=== PATIENT | female | born 1965 | race African-American/Black ===

== ENCOUNTER 2017-03-22 14:01 | Emergency (ER) | payer OTHER ==
[~2017-03-22] VITALS: Ht 165.1 cm; Wt 98.0 kg
[~2017-03-22 14:01] MED LIST: ACET-2863 PO; IBUP-2213 PO
[2017-03-22 14:07] VITALS: BP 115/69
--- NOTE | 2017-03-22 16:43 | NUR ---
CALLED PT TO BED. NO ANSWER. PATIENT LEFT WITHOUT BEING SEEN BY DR. LAU. NO FURTHER CARE PROVIDED FOR PATIENT.
== END 2017-03-22 16:43 | disposition left against medical advice (07) ==
LOC: MED 14:01
DX: R10.13 Epigastric pain (principal); J45.909 Unspecified asthma, uncomplicated; E11.9 Type 2 diabetes mellitus without complications; Z53.21 Procedure and treatment not carried out due to patient leaving prior to being seen by health care provider

== ENCOUNTER 2017-03-23 12:29 | Emergency (ER) | payer OTHER ==
[~2017-03-23] VITALS: Ht 165.1 cm; Wt 98.0 kg
[2017-03-23 12:46] VITALS: BP 117/72
[2017-03-23] MEDS ORDERED: SIMETHICONE 40 MG/0.6 ML PO ONE (13:35)
[2017-03-23 14:03] LABS: BASOPHILS # (AUTO) 0.2 K/uL (0.00-0.22); BASOPHILS % (AUTO) 3.9 % (0.0-2.0); EOSINOPHILS # (AUTO) 0.1 K/uL (0-0.4); EOSINOPHILS % (AUTO) 1.3 % (0.0-4.0); HEMOGLOBIN 11.6 g/dL (12.0-16.0); LYMPHOCYTES # (AUTO) 1.8 K/uL (2.5-16.5); LYMPHOCYTES % (AUTO) 34.5 % (20.5-51.1); MEAN CORPUSCULAR HEMOGLOBIN 27 pg (27-31); MEAN CORPUSCULAR HGB CONC 32 g/dL (33-37); MEAN CORPUSCULAR VOLUME 83 fL (80-94); MONOCYTES # (AUTO) 0.4 K/uL (0.8-1.0); MONOCYTES % (AUTO) 7.3 % (1.7-9.3); NEUTROPHILS # (AUTO) 2.8 K/uL (1.8-7.7); PLATELET COUNT (AUTO) 290 K/uL (140-450); RED BLOOD CELL COUNT(AUTO) 4.33 MIL/uL (4.20-5.40); WHITE BLOOD COUNT (AUTO) 5.3 K/uL (4.8-10.8)
[2017-03-23 14:05] LABS: APPEARANCE,URINE CLEAR (CLEAR); BILIRUBIN,URINE NEGATIVE (NEGATIVE); BLOOD, URINE NEGATIVE (NEGATIVE); COLOR,URINE YELLOW (YELLOW); LEUKOCYTE ESTERASE ,URINE NEGATIVE (NEGATIVE); NITRITE, URINE NEGATIVE (NEGATIVE); PH,URINE 5.5 (5.0-9.0); PROTEIN,URINE NEGATIVE (NEGATIVE); UGLUCOSE NEGATIVE (NEGATIVE); UROBILINOGEN,URINE 0.2 EU/dL (0.2 - 1)
--- NOTE | 2017-03-23 14:10 | NUR ---
PATIENT TO BED 8 AT THIS TIME.
--- NOTE | 2017-03-23 14:15 | NUR ---
PT PRESENTS TO ER W/C/O ABDOMINAL PAIN X1 MONTH. HX ASTHMA. PT STATES SHE FEELS NAUSAETED AND VOMITTED TODAY ALSO STATES AHE HAS DAIRRHEA YESTERDAY; SKIN IS PINK/WARM/DRY; AAOX4 WITH EVEN AND STEADY GAIT; LUNGS CLEAR BL; HR EVEN AND REGULAR; PT DENIES ANY FEVER, CP, SOB, OR COUGH AT THIS TIME; PATIENT STATES PAIN OF 8/10 ABDOMINLA PAIN AT THIS TIME;PATIENT POSITIONED FOR COMFORT; HOB ELEVATED; BEDRAILS UP X2; BED DOWN. ER MD WILL BE NOTIFIED.
--- NOTE | 2017-03-23 14:15 | NUR ---
APT PRESENTS TO ER W/C/O ABDOMINAL PAIN X1 MONTH. HX ASTHMA. PT STATES SHE FGEELS SKIN IS PINK/WARM/DRY; AAOX4 WITH EVEN AND STEADY GAIT; LUNGS CLEAR BL; HR EVEN AND REGULAR; PT DENIES ANY FEVER, CP, SOB, OR COUGH AT THIS TIME; PATIENT STATES PAIN OF 0/10 AT THIS TIME; VSS; PATIENT POSITIONED FOR COMFORT; HOB ELEVATED; BEDRAILS UP X2; BED DOWN. ER MD MADE AWARE OF PT STATUS.
[2017-03-23 14:34] LABS: CALCIUM 9.2 mg/dL (8.5-10.1); CARBON DIOXIDE 29.1 mmol/L (21-32); CREATININE 0.9 mg/dL (0.6-1.3); POTASSIUM 4.1 mmol/L (3.5-5.1)
[2017-03-23 14:45] LABS: ALBUMIN 3.5 g/dL (3.4-5.0); TOTAL BILIRUBIN 0.3 mg/dL (0.0-1.0); TOTAL PROTEIN, SERUM 7.6 g/dL (6.4-8.2)
[2017-03-23 15:21] VITALS: BP 118/66
== END 2017-03-23 15:21 | disposition home or self-care (01) ==
LOC: MED 12:29
DX: R10.9 Unspecified abdominal pain (principal); R11.0 Nausea; J45.909 Unspecified asthma, uncomplicated; E11.9 Type 2 diabetes mellitus without complications; Z79.899 Other long term (current) drug therapy
CPT/HCPCS: 36415; 71010; 80053; 81003; 83605; 83690; 84484; 85025; 93005; 99285

== ENCOUNTER 2017-09-15 23:00 | Emergency (ER) | payer OTHER ==
[~2017-09-15] VITALS: Ht 165.1 cm; Wt 100.8 kg
[2017-09-15 23:05] VITALS: BP 131/81
--- NOTE | 2017-09-15 23:25 | NUR ---
TO ER BED 2
--- NOTE | 2017-09-15 23:27 | NUR ---
PATIENT IS A 52 Y/O FEMALE WHO PRESENTS TO THE ED C/O BILATERAL LEG PAIN. PT STATES, "MY LEGS HAVE BEEN HURTING ME RECENTLY." PT REPORTS 7/10 ACHING LEG PAIN THAT DOES NOT RADIATE. PT DENIES CP, SOB, REPORTS DIARRHEA DENIES NAUSEA/VOMITING. NOTED BILATERAL PEDAL PULSES 2+, NO OBVIOUS DEFORMITY OR BLEEDING. PT AAOX4, RR EVEN/UNLABORED. PT REPOSITIONED FOR COMFORT, BED IN LOWEST POSITION. ER MD DR. NICKERSON NOTIFIED. WILL CONTINUE TO MONITOR.
[2017-09-16 00:18] VITALS: BP 129/85
--- NOTE | 2017-09-16 00:18 | NUR ---
Patient discharged with v/s stable. Written and verbal after care instructions given and explained. Patient verbalized understanding. Ambulatory with steady gait. All questions addressed prior to discharge. Advised to follow up with PMD.
== END 2017-09-16 00:18 | disposition home or self-care (01) ==
LOC: MED 23:00
DX: M79.662 Pain in left lower leg (principal); M79.661 Pain in right lower leg; M79.89 Other specified soft tissue disorders; Z88.0 Allergy status to penicillin; J45.909 Unspecified asthma, uncomplicated; M19.90 Unspecified osteoarthritis, unspecified site
CPT/HCPCS: 99283

== ENCOUNTER 2017-10-15 07:35 | Emergency (ER) | payer OTHER ==
[~2017-10-15] VITALS: Ht 167.6 cm; Wt 99.8 kg
[2017-10-15 07:38] VITALS: BP 100/58
--- NOTE | 2017-10-15 07:50 | NUR ---
PT AMBULATED TO [facility]
--- NOTE | 2017-10-15 07:53 | NUR ---
DR KADEEM RON PT AT BEDSIDE
[2017-10-15] MEDS ORDERED: DEXAMETHASONE 10 MG/ML VIAL IM ONE (07:55)
[2017-10-15] MEDS ORDERED: ALBUTEROL SULFATE/IPRATROPIU 3 ML SOL IH ONE (07:55)
[2017-10-15] MEDS ORDERED: cefTRIAXone 1,000 MG in LIDOCAINE 1% ***ER ONLY *** 2.1 ML IM ONE (07:55)
--- NOTE | 2017-10-15 08:00 | NUR ---
52/F BIB SELF C/O COUGH x 2 WEEKS, SORE THROAT AND UPPER BACK PAIN R/T PINCH NERVES X3DAYS. PT STS TOOK 800MG MOTRIN AND NEB TX LAST NIGHT. PT BROUGHT MDI BUDESINIDE WITH HERE TODAY. HX: ASTHMA, COPD, SCHIZOPHRENIA. LUNG SOUNDS DIMINSHED, MILD EXP WHEEZE TO LL. DENIES N/V/D; SKIN IS PINK/WARM/DRY; AAOX4 WITH EVEN AND STEADY GAIT WITH CANE; LUNGS CLEAR BL; HR EVEN AND REGULAR; PT DENIES ANY FEVER, CP, SOB, OR COUGH AT THIS TIME; PATIENT STATES PAIN OF 8/10 AT THIS TIME; PATIENT POSITIONED FOR COMFORT; HOB ELEVATED; BEDRAILS UP; BED DOWN. ER MD MADE AWARE OF PT STATUS.
--- NOTE | 2017-10-15 08:04 | NUR ---
PT AMBULATED TO BED 3
--- NOTE | 2017-10-15 08:10 | NUR ---
RT AT BEDSIDE.
[2017-10-15] MEDS ORDERED: cefTRIAXone 1,000 MG VIAL ONE (08:11)
--- NOTE | 2017-10-15 08:26 | NUR ---
X-Ray at bedside.
--- NOTE | 2017-10-15 09:30 | NUR ---
Patient discharged with v/s stable. Written and verbal after care instructions given and explained. Patient alert, oriented and verbalized understanding of instructions. Ambulatory with CANE. All questions addressed prior to discharge. ID band removed. Patient advised to follow up with PMD. Rx of ALBUTEROL MDI, PREDNISONE, AZITHROMYCIN given. Patient educated on indication of medication including possible reaction and side effects. Opportunity to ask questions provided and answered.
--- NOTE | 2017-10-15 09:30 | NUR ---
ORANGE SURVEY GIVEN TO PT.
[2017-10-15 09:33] VITALS: BP 100/58
== END 2017-10-15 09:30 | disposition home or self-care (01) ==
LOC: MED 07:35
DX: J45.901 Unspecified asthma with (acute) exacerbation (principal); J06.9 Acute upper respiratory infection, unspecified; F41.9 Anxiety disorder, unspecified; Z88.0 Allergy status to penicillin; Z79.899 Other long term (current) drug therapy
CPT/HCPCS: 71046; 94640; 96372; 99284; J0696; J1100; J2001; J7620

== ENCOUNTER 2018-11-03 14:16 | Emergency (ER) | payer OTHER ==
[~2018-11-03] VITALS: Ht 165.1 cm; Wt 99.3 kg
[~2018-11-03 14:16] MED LIST changes: -ACET-2863 PO; +HYDR-5123 PO
[2018-11-03 14:28] VITALS: BP 112/77
--- NOTE | 2018-11-03 14:32 | NUR ---
PT TO ER BED 12
--- NOTE | 2018-11-03 14:35 | NUR ---
53/F BIB SELF AMB WITH CANE C/O EPIGASTRIC PAIN THAT FEELS LIKE CRAMPS ON THE TOP OF ABDOMEN. PAIN STARTED YESTERDAY; PT TOOK NAPROSYN WITH NO RELIEF. PT STATES THAT GI DOCTOR TOLD HER SHE HAS A HERNIA IN THE EPIGASTRIC AREA. PAIN HAS BEEN INCREASING; HEAT HELPS. PAIN 05/02. HX: SLEEP APNEA, ASTHMA, PSYCH, LL SURGERY RX: ALBUTEROL, OMEPRAZOLE, KLONOPIN, SEROQUEL, ABILIFY
--- NOTE | 2018-11-03 15:15 | NUR ---
DR ADAIR AT BEDSIDE
[2018-11-03 15:53] LABS: BASOPHILS % (AUTO) 0.3 % (0.0-2.0); EOSINOPHILS # (AUTO) 0.1 K/uL (0-0.4); EOSINOPHILS % (AUTO) 1.9 % (0.0-4.0); HEMATOCRIT 35.1 % (36-48); HEMOGLOBIN 11.3 g/dL (12.0-16.0); LYMPHOCYTES # (AUTO) 1.9 K/uL (2.5-16.5); LYMPHOCYTES % (AUTO) 47.9 % (20.5-51.1); MEAN CORPUSCULAR HEMOGLOBIN 27 pg (27-31); MEAN CORPUSCULAR HGB CONC 32 g/dL (33-37); MEAN CORPUSCULAR VOLUME 82.9 fL (80-94); MONOCYTES # (AUTO) 0.4 K/uL (0.8-1.0); MONOCYTES % (AUTO) 9.9 % (1.7-9.3); NEUTROPHILS # (AUTO) 1.6 K/uL (1.8-7.7); PLATELET COUNT (AUTO) 280 K/uL (140-450); RED BLOOD CELL COUNT(AUTO) 4.24 MIL/uL (4.20-5.40); RED CELL DISTRIBUTION WIDTH 14.8 % (11.6-13.7)
--- NOTE | 2018-11-03 16:00 | NUR ---
PT RETURNED FROM CT. VSS. AA0X4.
[2018-11-03 16:01] LABS: APPEARANCE,URINE CLEAR (CLEAR); BILIRUBIN,URINE NEGATIVE (NEGATIVE); BLOOD, URINE NEGATIVE (NEGATIVE); COLOR,URINE YELLOW (YELLOW); LEUKOCYTE ESTERASE ,URINE 1+ (NEGATIVE); NITRITE, URINE NEGATIVE (NEGATIVE); UGLUCOSE NEGATIVE (NEGATIVE)
[2018-11-03 16:10] LABS: RBC,URINE 0-5 /HPF (0-5)
[2018-11-03 16:17] LABS: ANION GAP 11.7 (8-16); CARBON DIOXIDE 28.2 mmol/L (21-32); CREATININE 0.8 mg/dL (0.6-1.3); POTASSIUM 3.9 mmol/L (3.5-5.1)
[2018-11-03 16:23] LABS: ALBUMIN 3.6 g/dL (3.4-5.0); TOTAL BILIRUBIN 0.4 mg/dL (0.0-1.0)
[2018-11-03 17:13] VITALS: BP 114/60
--- NOTE | 2018-11-03 17:13 | NUR ---
Patient discharged with v/s stable. Written and verbal after care instructions given and explained. Patient alert, oriented and verbalized understanding of instructions. Ambulatory with . All questions addressed prior to discharge. ID band removed. Patient advised to follow up with PMD. Rx of BENTYL,ZOLAYNE&PEPCID given. Patient educated on indication of medication including possible reaction and side effects. Opportunity to ask questions provided and answered.
== END 2018-11-03 17:13 | disposition home or self-care (01) ==
LOC: MED 14:16
DX: R10.13 Epigastric pain (principal); R11.0 Nausea; J44.9 Chronic obstructive pulmonary disease, unspecified; Z79.891 Long term (current) use of opiate analgesic; Z79.1 Long term (current) use of non-steroidal anti-inflammatories (NSAID); Z88.0 Allergy status to penicillin; Z88.6 Allergy status to analgesic agent
CPT/HCPCS: 36415; 80053; 81001; 81025; 85025; 87086; 99284

== ENCOUNTER 2018-11-10 10:26 | Emergency (ER) | payer OTHER ==
[~2018-11-10] VITALS: Ht 165.1 cm; Wt 55.8 kg
[2018-11-10 10:28] VITALS: BP 123/77
--- NOTE | 2018-11-10 10:45 | NUR ---
PT AMB TO BED 12
--- NOTE | 2018-11-10 11:00 | NUR ---
C/O NAUSEA,GENERALIZED ABDOMINAL PAIN, COUGH, SORE THROAT & CHEST DYSCOMFOT X 1 WEEK. SEEN HERE SAME S/S X LAST WEDNESDAY; GOT [facility]ARD. MED HX: BODERLINE DM, ASTHMA SLEEP APNEA, PARTIAL HYSTERECTOMY MED : ON THE MED LIST
[2018-11-10] MEDS ORDERED: NACL 0.9% 500 ML IV SCH (11:33)
[2018-11-10 12:09] LABS: BASOPHILS % (AUTO) 0.5 % (0.0-2.0); EOSINOPHILS % (AUTO) 0.9 % (0.0-4.0); HEMATOCRIT 36.4 % (36-48); HEMOGLOBIN 11.9 g/dL (12.0-16.0); LYMPHOCYTES % (AUTO) 45.5 % (20.5-51.1); MEAN CORPUSCULAR HEMOGLOBIN 27 pg (27-31); MEAN CORPUSCULAR HGB CONC 33 g/dL (33-37); MEAN CORPUSCULAR VOLUME 82.2 fL (80-94); MONOCYTES # (AUTO) 0.3 K/uL (0.8-1.0); NEUTROPHILS % (AUTO) 46.1 % (42.2-75.2); PLATELET COUNT (AUTO) 349 K/uL (140-450); RED BLOOD CELL COUNT(AUTO) 4.42 MIL/uL (4.20-5.40); RED CELL DISTRIBUTION WIDTH 14.7 % (11.6-13.7); WHITE BLOOD COUNT (AUTO) 4.4 K/uL (4.8-10.8)
[2018-11-10 12:21] LABS: BILIRUBIN,URINE NEGATIVE (NEGATIVE); BLOOD, URINE NEGATIVE (NEGATIVE); COLOR,URINE YELLOW (YELLOW); LEUKOCYTE ESTERASE ,URINE NEGATIVE (NEGATIVE); NITRITE, URINE NEGATIVE (NEGATIVE); PH,URINE 6.5 (5.0-9.0); UGLUCOSE NEGATIVE (NEGATIVE)
[2018-11-10 12:24] LABS: ANION GAP 12.8 (8-16); CARBON DIOXIDE 29.1 mmol/L (21-32); CREATININE 0.8 mg/dL (0.6-1.3); POTASSIUM 3.9 mmol/L (3.5-5.1)
[2018-11-10 12:26] LABS: APPEARANCE,URINE CLEAR (CLEAR)
[2018-11-10 12:28] LABS: PROTHROMBIN TIME 9.9 secs (10.8-13.4)
[2018-11-10 12:30] LABS: ALBUMIN 3.6 g/dL (3.4-5.0); TOTAL BILIRUBIN 0.2 mg/dL (0.0-1.0)
[2018-11-10 14:08] VITALS: BP 116/61
== END 2018-11-10 14:08 | disposition home or self-care (01) ==
LOC: MED 10:26
DX: R10.84 Generalized abdominal pain (principal); R11.0 Nausea; R05 Cough; J02.9 Acute pharyngitis, unspecified; R07.89 Other chest pain; J44.9 Chronic obstructive pulmonary disease, unspecified; Z79.899 Other long term (current) drug therapy; Z88.5 Allergy status to narcotic agent; Z88.6 Allergy status to analgesic agent; Z90.710 Acquired absence of both cervix and uterus
CPT/HCPCS: 36415; 71045; 74176; 80053; 81003; 83605; 83880; 84484; 85025; 85610; 85730; 87040; 87086; 93005; 99284; J7030; Q0092

== ENCOUNTER 2019-03-16 07:24 | Emergency (ER) | payer OTHER ==
[~2019-03-16] VITALS: Ht 165.1 cm; Wt 98.0 kg
--- NOTE | 2019-03-16 07:31 | NUR ---
Patient ambulated to bed 3. RN evaluating patient at bedside.
[2019-03-16 07:37] VITALS: BP_SYST 11; BP_SYST 110; BP_DIAS 72
--- NOTE | 2019-03-16 07:39 | NUR ---
C/O NAUSEA, DIZZINESS & HEADACHE X 2 DAYS.MED HX:ASTHMA, SLEEP APNEA, GERD, NERVE PAIN, BORDERLINE DM. DENIES V/D; SKIN IS PINK/WARM/DRY; AAOX4,AMB WITH CANE; PATIENT STATES PAIN OF 8/10 AT THIS TIME. PATIENT POSITIONED FOR COMFORT; HOB ELEVATED; BEDRAILS UP X1; BED DOWN. ER MD MADE AWARE OF PT STATUS.
--- NOTE | 2019-03-16 07:41 | NUR ---
Dr. Stanley evaluating patient at bedside.
[2019-03-16] MEDS ORDERED: ONDANSETRON 4 MG ODT PO ONE (07:45)
[2019-03-16] MEDS ORDERED: SCOPOLAMINE 1.5 MG/72 HR PATCH TD SCH (07:45)
[2019-03-16] MEDS ORDERED: MECLIZINE 25 MG TAB PO ONE (07:45)
--- NOTE | 2019-03-16 07:55 | NUR ---
LAB AT BEDSIDE
[2019-03-16 08:10] LABS: BASOPHILS % (AUTO) 0.3 % (0.0-2.0); EOSINOPHILS % (AUTO) 1.1 % (0.0-4.0); HEMATOCRIT 34.2 % (36-48); LYMPHOCYTES # (AUTO) 1.7 K/uL (2.5-16.5); LYMPHOCYTES % (AUTO) 42.3 % (20.5-51.1); MEAN CORPUSCULAR HEMOGLOBIN 26 pg (27-31); MEAN CORPUSCULAR HGB CONC 32 g/dL (33-37); MEAN CORPUSCULAR VOLUME 80.7 fL (80-94); MONOCYTES # (AUTO) 0.4 K/uL (0.8-1.0); MONOCYTES % (AUTO) 9.4 % (1.7-9.3); NEUTROPHILS # (AUTO) 1.9 K/uL (1.8-7.7); NEUTROPHILS % (AUTO) 46.9 % (42.2-75.2); PLATELET COUNT (AUTO) 268 K/uL (140-450); RED BLOOD CELL COUNT(AUTO) 4.23 MIL/uL (4.20-5.40); RED CELL DISTRIBUTION WIDTH 15.7 % (11.6-13.7); WHITE BLOOD COUNT (AUTO) 4.1 K/uL (4.8-10.8)
--- NOTE | 2019-03-16 08:16 | NUR ---
PT TAKEN TO CT VIA W/C, ACCOMPANIED BY FIRESTOP/CONTAINMENT WORKER.
[2019-03-16 08:22] LABS: CARBON DIOXIDE 27.1 mmol/L (21-32); CREATININE 0.8 mg/dL (0.6-1.3); POTASSIUM 4.1 mmol/L (3.5-5.1)
[2019-03-16 08:28] LABS: ALBUMIN 3.5 g/dL (3.4-5.0); TOTAL BILIRUBIN 0.2 mg/dL (0.0-1.0)
--- NOTE | 2019-03-16 08:49 | NUR ---
pt returned from ct.
--- NOTE | 2019-03-16 09:27 | NUR ---
Dr. Stanley reevaluating patient at bedside.
[2019-03-16 09:42] VITALS: BP 110/81
--- NOTE | 2019-03-16 09:42 | NUR ---
Patient discharged with v/s stable. Written and verbal after care instructions given and explained. Patient alert, oriented and verbalized understanding of instructions. Ambulatory with steady gait. All questions addressed prior to discharge. ID band removed. Patient advised to follow up with PMD. Rx of MECLIZINE,ZOFRAN & SCOPOLAMINE given. Patient educated on indication of medication including possible reaction and side effects. Opportunity to ask questions provided and answered.
== END 2019-03-16 09:42 | disposition home or self-care (01) ==
LOC: MED 07:24
DX: R42 Dizziness and giddiness (principal); R11.2 Nausea with vomiting, unspecified; J44.9 Chronic obstructive pulmonary disease, unspecified; Z79.899 Other long term (current) drug therapy; Z88.0 Allergy status to penicillin; Z88.6 Allergy status to analgesic agent
CPT/HCPCS: 36415; 70450; 80053; 85025; 99284; J8597; Q0162

== ENCOUNTER 2019-04-14 10:16 | Emergency (ER) | payer OTHER ==
[~2019-04-14] VITALS: Ht 165.1 cm; Wt 97.1 kg
[2019-04-14 10:20] VITALS: BP 107/73
--- NOTE | 2019-04-14 10:26 | NUR ---
PT AMB TO BED 1 WITH WALKER
--- NOTE | 2019-04-14 10:41 | NUR ---
PT BIB SLEF WITH C/O R FOOT PAIN X 1 WEEK RADIATING UP LEG. DENIES TRUAMA/INJURY. NO OBVIOUS DEFORMITY. PAIN 10/10. PT RT FOOT HAS SLIGHT TENDERNESS TO TOUCH AT LATERAL SIDE. PINK SMALL SPOT OBSERVED, STATES TO HAVE SLIGHT PAIN WHILE TOUCHING IT. CAN MOVE THE LEG, NO SWELLNG OR REDNESS NOTED. PT STATES TO HAVE GONE TO PAIN MANAGEMENT CLIN[facility], PROVIDER INCREASED THE HER PAIN MEDS DOSE, NOT HELPING. PAIN WORSE WITH ACTIVITIES. DENIES CHILLS, FEVER, N, V. PT USES WALKER FOR THE AMBULATION. BED AT LOWER POSITION. ER MD TO SEE THE PT. PMH-SLEEP APNEA, ASTHMA, GERD, INSOMNIA
[2019-04-14 13:33] VITALS: BP 118/75
--- NOTE | 2019-04-14 13:33 | NUR ---
Patient discharged with v/s stable. Written and verbal after care instructions given and explained. Patient alert, oriented and verbalized understanding of instructions. Ambulatory with steady gait. All questions addressed prior to discharge. ID band removed. Patient advised to follow up with PMD. Opportunity to ask questions provided and answered.
== END 2019-04-14 13:33 | disposition home or self-care (01) ==
LOC: MED 10:16
DX: M25.571 Pain in right ankle and joints of right foot (principal); J44.9 Chronic obstructive pulmonary disease, unspecified; Z88.0 Allergy status to penicillin
CPT/HCPCS: 73630; 99283

== ENCOUNTER 2019-07-12 09:05 | Emergency (ER) | payer OTHER ==
[~2019-07-12] VITALS: Ht 165.1 cm; Wt 93.0 kg
[2019-07-12 09:40] VITALS: BP 104/58
[2019-07-12] MEDS: KETOROLAC 60 MG/2 ML VIAL IM ONE (12:04)
[2019-07-12 13:07] VITALS: BP 104/58
== END 2019-07-12 13:07 | disposition home or self-care (01) ==
LOC: MED 09:05
DX: M54.5 Low back pain (principal); G89.29 Other chronic pain; J44.9 Chronic obstructive pulmonary disease, unspecified; Z79.1 Long term (current) use of non-steroidal anti-inflammatories (NSAID); Z79.891 Long term (current) use of opiate analgesic; Z88.0 Allergy status to penicillin; Z88.6 Allergy status to analgesic agent
CPT/HCPCS: 81002; 96372; 99283; J1885

== ENCOUNTER 2019-07-15 08:34 | Emergency (ER) | payer OTHER ==
[~2019-07-15] VITALS: Ht 165.1 cm; Wt 98.1 kg
[2019-07-15 08:43] VITALS: BP 127/68
--- NOTE | 2019-07-15 09:05 | NUR ---
PT C/O RIGHT BACK PAIN RADIATING TO LEFT ABDOMINAL X 2 DAYS. SEEN HERE 2 DAYS AGO & WENT TO URGENT CARE LAST NIGHT SAME SX. PATIENT STATES PAIN OF 8/10 AT THIS TIME; VSS; PATIENT POSITIONED FOR COMFORT; HOB ELEVATED; BEDRAILS UP X1; BED DOWN. ER MD MADE AWARE OF PT STATUS.
[2019-07-15] MEDS ORDERED: KETOROLAC 30 MG/ML VIAL IVP ONE (09:20)
[2019-07-15] MEDS ORDERED: NACL 0.9% 1,000 ML IV ONE (09:20)
--- NOTE | 2019-07-15 09:27 | NUR ---
Chuck ambrosio in ED - 07/15/19 at 0927 by HANNAH PT [address] CT VIA WHEELCHAIR
--- NOTE | 2019-07-15 09:27 | NUR ---
PT TAKEN TO CT SCAN BY DISPENSING AND MEASURING OPTICIAN VIA WHEELCHAIR.
[2019-07-15 09:50] LABS: BASOPHILS % (AUTO) 1.1 % (0.0-2.0); EOSINOPHILS # (AUTO) 0.1 K/uL (0-0.4); EOSINOPHILS % (AUTO) 1.9 % (0.0-4.0); HEMATOCRIT 34.9 % (36-48); HEMOGLOBIN 11.3 g/dL (12.0-16.0); LYMPHOCYTES # (AUTO) 1.7 K/uL (2.5-16.5); LYMPHOCYTES % (AUTO) 48.8 % (20.5-51.1); MEAN CORPUSCULAR HEMOGLOBIN 27 pg (27-31); MEAN CORPUSCULAR HGB CONC 32 g/dL (33-37); MEAN CORPUSCULAR VOLUME 82.2 fL (80-94); MONOCYTES # (AUTO) 0.4 K/uL (0.8-1.0); MONOCYTES % (AUTO) 11.8 % (1.7-9.3); NEUTROPHILS # (AUTO) 1.3 K/uL (1.8-7.7); NEUTROPHILS % (AUTO) 36.4 % (42.2-75.2); PLATELET COUNT (AUTO) 269 K/uL (140-450); RED BLOOD CELL COUNT(AUTO) 4.25 MIL/uL (4.20-5.40); RED CELL DISTRIBUTION WIDTH 15.2 % (11.6-13.7); WHITE BLOOD COUNT (AUTO) 3.5 K/uL (4.8-10.8)
[2019-07-15 09:57] LABS: ANION GAP 14.2 (8-16); CARBON DIOXIDE 26.9 mmol/L (21-32); CREATININE 0.7 mg/dL (0.6-1.3); POTASSIUM 5.1 mmol/L (3.5-5.1)
[2019-07-15 10:03] LABS: ALBUMIN 3.3 g/dL (3.4-5.0); TOTAL BILIRUBIN 0.3 mg/dL (0.0-1.0)
--- NOTE | 2019-07-15 10:15 | NUR ---
PT HAS BEEN BACK FROM CT SCAN VIA WHEELCHAIR ASSISTED BY AFTERNOON BABYSITTER.
--- NOTE | 2019-07-15 10:56 | NUR ---
Dr. Pruitt is re-evaluating the patient at bedside.
[2019-07-15 11:13] VITALS: BP 123/61
--- NOTE | 2019-07-15 11:13 | NUR ---
Patient discharged with v/s stable. Written and verbal after care instructions given and explained. Patient alert, oriented and verbalized understanding of instructions. Ambulatory with steady gait. All questions addressed prior to discharge. ID band removed. Patient advised to follow up with PMD. Rx of Motrin and Tramadol given. Patient educated on indication of medication including possible reaction and side effects. Opportunity to ask questions provided and answered.
== END 2019-07-15 11:13 | disposition home or self-care (01) ==
LOC: MED 08:34
DX: K57.90 Diverticulosis of intestine, part unspecified, without perforation or abscess without bleeding (principal); J44.9 Chronic obstructive pulmonary disease, unspecified; Z79.899 Other long term (current) drug therapy; Z88.0 Allergy status to penicillin; Z88.6 Allergy status to analgesic agent
CPT/HCPCS: 36415; 74176; 80053; 85025; J1885; 96361; 96374; 99284; J7030

== ENCOUNTER 2019-09-16 10:36 | Emergency (ER) | payer OTHER ==
[~2019-09-16] VITALS: Ht 165.1 cm; Wt 95.3 kg
[2019-09-16 10:41] VITALS: BP 124/75
--- NOTE | 2019-09-16 10:50 | NUR ---
AMB TO BED 05
--- NOTE | 2019-09-16 10:58 | NUR ---
Dr. Kat is evaluating the patient at bedside.
[2019-09-16] MEDS ORDERED: ALBUTEROL SULFATE/IPRATROPIU 3 ML SOL IH ONE ×2 (11:00→12:07)
--- NOTE | 2019-09-16 11:05 | NUR ---
54/F TO ED WITH C/O COUGH, CONGESTION, SHORTNESS OF BREATH OVER THE LAST "FEW WEEKS" PT DOES NOT APPEAR TO BE IN DISTRESS. LUNG SOUNDS CLEAR BILATERALLY. IN BED FOR MSE.
[2019-09-16] MEDS ORDERED: predniSONE 20 MG TAB PO ONE (11:10)
--- NOTE | 2019-09-16 11:15 | NUR ---
TO XRAY VIA CT.
--- NOTE | 2019-09-16 12:15 | NUR ---
PT REPORTS RELIEF OF SYMPTOMS S/P BREATHING TREATMENT. D/C ORDERS TO FOLLOW.
[2019-09-16 12:40] VITALS: BP 124/75
== END 2019-09-16 12:40 | disposition home or self-care (01) ==
LOC: MED 10:36
DX: J20.9 Acute bronchitis, unspecified (principal); J44.9 Chronic obstructive pulmonary disease, unspecified; K21.9 Gastro-esophageal reflux disease without esophagitis; F32.9 Major depressive disorder, single episode, unspecified; Z79.899 Other long term (current) drug therapy; Z88.0 Allergy status to penicillin; Z88.5 Allergy status to narcotic agent
CPT/HCPCS: 71046; 87804; 94640; 99284; J7512; J7620

== ENCOUNTER 2020-02-06 11:06 | Emergency (ER) | payer OTHER ==
[~2020-02-06] VITALS: Ht 165.1 cm; Wt 98.0 kg
[2020-02-06 11:11] VITALS: BP 126/73
--- NOTE | 2020-02-06 11:18 | NUR ---
Patient ambulated to bed 7. RN evaluating patient at bedside.
--- NOTE | 2020-02-06 11:20 | NUR ---
C/O RIGHT FOOT PAIN RADIATING TO R CALF 10 ON AND OFF FOR 3 MONTHS BUT HAD INCREASED OVER THE LAST WEEK. PT STATES "I THINK I HAVE A BLOOD CLOT". NO REDNESS/SWELLING/WARMTH NOTED TO CALF AREA. TENDERNESS NOTED TO CALF ON PALPATION. PT BASELINE AMBULATORY STATUS IS WITH WALKER. PROVIDED PT WITH GOWN, CAREGIVER AT BEDSIDE
--- NOTE | 2020-02-06 11:21 | NUR ---
Dr. Benavidez is evaluating the patient at bedside.
--- NOTE | 2020-02-06 11:39 | NUR ---
US tech at bedside for exam.
--- NOTE | 2020-02-06 12:40 | NUR ---
Patient discharged with v/s stable. Written and verbal after care instructions given and explained. Patient alert, oriented and verbalized understanding of instructions. Ambulatory with to car. All questions addressed prior to discharge. ID band removed. Patient advised to follow up with PMD. Rx of Diclofenak gel 3% given. Patient educated on indication of medication including possible reaction and side effects. Opportunity to ask questions provided and answered.
[2020-02-06 12:47] VITALS: BP 110/70
== END 2020-02-06 12:40 | disposition home or self-care (01) ==
LOC: MED 11:06
DX: S86.811A Strain of other muscle(s) and tendon(s) at lower leg level, right leg, initial encounter (principal); J44.9 Chronic obstructive pulmonary disease, unspecified; K21.9 Gastro-esophageal reflux disease without esophagitis; F32.9 Major depressive disorder, single episode, unspecified; Z98.890 Other specified postprocedural states; Z79.899 Other long term (current) drug therapy; Z88.0 Allergy status to penicillin; Z88.6 Allergy status to analgesic agent; Z90.710 Acquired absence of both cervix and uterus; X58.XXXA Exposure to other specified factors, initial encounter; Y93.89 Activity, other specified; Y92.89 Other specified places as the place of occurrence of the external cause; Y99.8 Other external cause status
CPT/HCPCS: 93971; 99284; Q0092

== ENCOUNTER 2020-04-18 08:52 | Emergency (ER) | payer OTHER ==
[~2020-04-18] VITALS: Ht 165.1 cm; Wt 98.0 kg
[2020-04-18 09:04] VITALS: BP 144/80
--- NOTE | 2020-04-18 09:10 | NUR ---
PT AMB TO BED 7.
--- NOTE | 2020-04-18 09:24 | NUR ---
55 YO FEMALE C/O NAUSEA AND CONSTANT LUQ ABDOMINAL PAIN X 4-5 DAYS. CHRONIC COUGH FROM ASTHMA MED HX: ASTHMA, BRONCHITIS, SLEEP APNEA, IBS, ABD HERNIA
[2020-04-18] MEDS ORDERED: LIDOCAINE VISCOUS 2% 20 ML UDC ONE (09:34)
[2020-04-18] MEDS ORDERED: ALUMINUM HYD/MAG/SIMETHICONE 30 ML UDC ONE (09:34)
[2020-04-18] MEDS ORDERED: DICYCLOMINE HCL LIQUID 10 MG/5 ML UDC ONE (09:35)
[2020-04-18] MEDS ORDERED: DICYCLOMINE HCL LIQUID 20 MG, ALUMINUM HYD/MAG/SIMETHICONE 30 ML, LIDOCAINE VISCOUS 2% ... PO ONE ×3 (09:35)
[2020-04-18 10:14] VITALS: BP 138/79
--- NOTE | 2020-04-18 10:15 | NUR ---
Patient discharged with v/s stable. Written and verbal after care instructions given and explained. Patient alert, oriented and verbalized understanding of instructions. Ambulatory with steady gait. All questions addressed prior to discharge. ID band removed. Patient advised to follow up with PMD. Rx of CIPRO AND ZOFRAN given. Patient educated on indication of medication including possible reaction and side effects. Opportunity to ask questions provided and answered.
== END 2020-04-18 10:15 | disposition home or self-care (01) ==
LOC: MED 08:52
DX: R10.13 Epigastric pain (principal); R19.7 Diarrhea, unspecified; J44.9 Chronic obstructive pulmonary disease, unspecified; J45.909 Unspecified asthma, uncomplicated; K21.9 Gastro-esophageal reflux disease without esophagitis; Z88.0 Allergy status to penicillin; Z96.653 Presence of artificial knee joint, bilateral; Z79.899 Other long term (current) drug therapy
CPT/HCPCS: 81002; 99283

== ENCOUNTER 2021-02-17 11:01 | Emergency (ER) | payer OTHER ==
[~2021-02-17] VITALS: Ht 165.1 cm; Wt 98.9 kg
[~2021-02-17 11:01] MED LIST changes: +HYDR-5080 PO; -HYDR-5123 PO
[2021-02-17 11:21] VITALS: BP 118/73
--- NOTE | 2021-02-17 11:25 | NUR ---
PT TO AWAIT IN LOBBY
--- NOTE | 2021-02-17 12:26 | NUR ---
PT AMBULATED TO BED 07
--- NOTE | 2021-02-17 13:08 | NUR ---
Dr. Orourke is evaluating the patient at bedside.
[2021-02-17] MEDS ORDERED: KETOROLAC 60 MG/2 ML VIAL IM ONE (13:10)
[2021-02-17] MEDS ORDERED: CIPR500T4 PO ×2 (13:23→13:43)
[2021-02-17] MEDS ORDERED: PRED20TA5 PO ×2 (13:23→13:43)
[2021-02-17] MEDS ORDERED: IBUP-2213 PO ×2 (13:23→13:43)
[2021-02-17 14:01] VITALS: BP 118/73
--- NOTE | 2021-02-17 14:01 | NUR ---
Patient discharged with v/s stable. Written and verbal after care instructions ABOUT MEDICATIONS, PYELONEPHRITIS AND COUGH given and explained. Patient alert, oriented and verbalized understanding of instructions. Ambulatory with steady gait. All questions addressed prior to discharge. ID band removed. Patient advised to follow up with PMD. Rx of CIPROFLOXACIN HCL, IBUPROFEN, AND PREDNISONE given. Patient educated on indication of medication including possible reaction and side effects. Opportunity to ask questions provided and answered.
== END 2021-02-17 13:59 | disposition home or self-care (01) ==
LOC: MED 11:01
DX: N12 Tubulo-interstitial nephritis, not specified as acute or chronic (principal); R19.7 Diarrhea, unspecified; J44.9 Chronic obstructive pulmonary disease, unspecified; K21.9 Gastro-esophageal reflux disease without esophagitis; Z88.0 Allergy status to penicillin; Z88.8 Allergy status to other drugs, medicaments and biological substances; Z98.890 Other specified postprocedural states; Z79.899 Other long term (current) drug therapy
CPT/HCPCS: 81002; 81025; 96372; 99283; J1885

== ENCOUNTER 2021-02-26 09:15 | Emergency (ER) | payer OTHER ==
[~2021-02-26] VITALS: Ht 165.1 cm; Wt 98.9 kg
[~2021-02-26 09:15] MED LIST changes: +CIPR500T4 PO; +PRED20TA5 PO
[2021-02-26 09:21] VITALS: BP 110/61
[2021-02-26] MEDS ORDERED: DICYCLOMINE 10 MG CAP PO ONE (10:30)
[2021-02-26] MEDS ORDERED: FAMOTIDINE 20 MG TAB PO ONE (10:30)
[2021-02-26 13:06] LABS: BASOPHILS % (AUTO) 0.4 % (0.0-2.0); EOSINOPHILS # (AUTO) 0.1 K/uL (0-0.4); EOSINOPHILS % (AUTO) 1.6 % (0.0-4.0); HEMATOCRIT 36.4 % (36-48); HEMOGLOBIN 11.8 g/dL (12.0-16.0); LYMPHOCYTES # (AUTO) 2.1 K/uL (2.5-16.5); MEAN CORPUSCULAR HEMOGLOBIN 27 pg (27-31); MEAN CORPUSCULAR HGB CONC 33 g/dL (33-37); MEAN CORPUSCULAR VOLUME 83.9 fL (80-94); MONOCYTES # (AUTO) 0.4 K/uL (0.8-1.0); MONOCYTES % (AUTO) 8.3 % (1.7-9.3); NEUTROPHILS # (AUTO) 2.4 K/uL (1.8-7.7); NEUTROPHILS % (AUTO) 47.7 % (42.2-75.2); PLATELET COUNT (AUTO) 297 K/uL (140-450); RED BLOOD CELL COUNT(AUTO) 4.35 MIL/uL (4.20-5.40); RED CELL DISTRIBUTION WIDTH 15.4 % (11.6-13.7); WHITE BLOOD COUNT (AUTO) 5.1 K/uL (4.8-10.8)
[2021-02-26 13:20] LABS: BILIRUBIN,URINE NEGATIVE (NEGATIVE); BLOOD, URINE TRACE-I (NEGATIVE); COLOR,URINE YELLOW (YELLOW); LEUKOCYTE ESTERASE ,URINE 2+ (NEGATIVE); NITRITE, URINE NEGATIVE (NEGATIVE); UGLUCOSE NEGATIVE (NEGATIVE)
[2021-02-26 13:40] LABS: ALBUMIN 3.8 g/dL (3.4-5.0); ANION GAP 10.6 (8-16); CARBON DIOXIDE 28.3 mmol/L (21-32); CREATININE 0.7 mg/dL (0.6-1.3); POTASSIUM 3.9 mmol/L (3.5-5.1); TOTAL BILIRUBIN 0.3 mg/dL (0.0-1.0)
[2021-02-26] MEDS ORDERED: NITR100C7 PO (13:49)
[2021-02-26 13:56] VITALS: BP 118/77
[2021-02-26 13:56] LABS: RBC,URINE 0-5 /HPF (0-5)
[2021-02-26 13:57] LABS: APPEARANCE,URINE HAZY (CLEAR)
== END 2021-02-26 13:56 | disposition home or self-care (01) ==
LOC: MED 09:15
DX: K21.9 Gastro-esophageal reflux disease without esophagitis (principal); K29.71 Gastritis, unspecified, with bleeding; N39.0 Urinary tract infection, site not specified; J44.9 Chronic obstructive pulmonary disease, unspecified; Z88.0 Allergy status to penicillin; Z88.6 Allergy status to analgesic agent
CPT/HCPCS: 36415; 71045; 76705; 80053; 81001; 81025; 83690; 85025; 87086; 87186; 93005; 99285

== ENCOUNTER 2022-10-12 10:35 | Emergency (ER) | payer OTHER ==
[~2022-10-12] VITALS: Ht 165.1 cm; Wt 98.4 kg
[~2022-10-12 10:35] MED LIST changes: +NITR100C7 PO
[2022-10-12 10:45] VITALS: BP 121/72
--- NOTE | 2022-10-12 11:18 | NUR ---
DR PARKS AT PT SIDE FOR EVAL
[2022-10-12 11:42] LABS: BASOPHILS % (AUTO) 0.5 % (0.0-2.0); EOSINOPHILS % (AUTO) 0.7 % (0.0-4.0); HEMATOCRIT 37.6 % (36-48); HEMOGLOBIN 12.2 g/dL (12.0-16.0); LYMPHOCYTES # (AUTO) 1.9 K/uL (2.5-16.5); LYMPHOCYTES % (AUTO) 32.1 % (20.5-51.1); MEAN CORPUSCULAR HEMOGLOBIN 27 pg (27-31); MEAN CORPUSCULAR HGB CONC 33 g/dL (33-37); MEAN CORPUSCULAR VOLUME 82.3 fL (80-94); MONOCYTES # (AUTO) 0.6 K/uL (0.8-1.0); MONOCYTES % (AUTO) 9.1 % (1.7-9.3); NEUTROPHILS # (AUTO) 3.5 K/uL (1.8-7.7); NEUTROPHILS % (AUTO) 57.6 % (42.2-75.2); PLATELET COUNT (AUTO) 347 K/uL (140-450); RED BLOOD CELL COUNT(AUTO) 4.57 MIL/uL (4.20-5.40); RED CELL DISTRIBUTION WIDTH 15.3 % (11.6-13.7); WHITE BLOOD COUNT (AUTO) 6.1 K/uL (4.8-10.8)
[2022-10-12 11:52] LABS: ANION GAP 13.4 (8-16); CARBON DIOXIDE 27.6 mmol/L (21-32); CREATININE 0.8 mg/dL (0.6-1.3)
--- NOTE | 2022-10-12 12:16 | NUR ---
57 Y/O FEMALE BIB SELF C/O COUGH, RUNNY NOSE, SOB, CHEST PAIN WITH COUGHING X5 DAYS, SATTING 99% RA,TOOK INHALER AT 0830 TODAY, NO NAUSEA, ABD PAIN NOTED. NO WHEEZING NOTED AT THIS TIME ALLERGY: PCN AND TYLENOL MIXED TOGETHER PMH: ASTHMA, GERD. SLEEP APNEA
[2022-10-12] MEDS ORDERED: PRED20TA5 PO (13:07)
== END 2022-10-12 13:15 | disposition home or self-care (01) ==
LOC: MED 10:35
DX: J44.9 Chronic obstructive pulmonary disease, unspecified (principal); K21.9 Gastro-esophageal reflux disease without esophagitis; Z79.899 Other long term (current) drug therapy; Z79.2 Long term (current) use of antibiotics; Z79.1 Long term (current) use of non-steroidal anti-inflammatories (NSAID); Z79.891 Long term (current) use of opiate analgesic; Z88.0 Allergy status to penicillin; Z88.6 Allergy status to analgesic agent
CPT/HCPCS: 36415; 71045; 80048; 84484; 85025; 93005; 99285

== ENCOUNTER 2022-11-17 11:40 | Emergency (ER) | payer OTHER ==
[~2022-11-17] VITALS: Ht 165.1 cm; Wt 99.8 kg
[2022-11-17 12:11] VITALS: BP 135/87
--- NOTE | 2022-11-17 12:20 | NUR ---
57/F WALKED IN C/O ABSCESS TO RIGHT UPPER ARM ONSET 3 WKS THAT GOT WORSE. DENIES DRAINING THE ABSCESS. PMH: ASTHMA
[2022-11-17] MEDS ORDERED: KETOROLAC 30 MG/ML VIAL IM ONE (13:35)
[2022-11-17 15:10] VITALS: BP 129/86
[2022-11-17] MEDS ORDERED: IBUP-2213 PO (15:15)
--- NOTE | 2022-11-17 15:32 | NUR ---
Patient discharged with v/s stable. Written and verbal after care instructions FOR MUSCULOSKELETAL PAIN given and explained. Patient alert, oriented and verbalized understanding of instructions. Ambulatory with steady gait. All questions addressed prior to discharge. ID band removed. Patient advised to follow up with PMD. Rx of IBUPROFEN given.. Opportunity to ask questions provided and answered.
--- NOTE | 2022-11-17 15:33 | NUR ---
The patient's care was reviewed and supervised by Leticia Boston RN.
== END 2022-11-17 15:32 | disposition home or self-care (01) ==
LOC: MED 11:40
DX: M79.621 Pain in right upper arm (principal); J45.909 Unspecified asthma, uncomplicated; K21.9 Gastro-esophageal reflux disease without esophagitis; Z79.1 Long term (current) use of non-steroidal anti-inflammatories (NSAID); Z79.899 Other long term (current) drug therapy; Z79.2 Long term (current) use of antibiotics; Z79.891 Long term (current) use of opiate analgesic; Z88.0 Allergy status to penicillin; Z88.6 Allergy status to analgesic agent
CPT/HCPCS: 76881; 96372; 99285; J1885; Q0092

== ENCOUNTER 2024-03-07 13:30 | Emergency (ER) | payer OTHER ==
[~2024-03-07] VITALS: Ht 166.4 cm; Wt 86.2 kg
[2024-03-07 13:49] VITALS: BP 114/78; PULSE 74; RESP 18; TEMP 97.8; O2SAT 100
[2024-03-07 15:12] LABS: BASOPHILS % (AUTO) 0.4 % (0.0-2.0); EOSINOPHILS # (AUTO) 0.1 K/uL (0-0.4); EOSINOPHILS % (AUTO) 1.8 % (0.0-4.0); HEMATOCRIT 33.3 % (36-48); HEMOGLOBIN 10.8 g/dL (12.0-16.0); LYMPHOCYTES # (AUTO) 1.7 K/uL (2.5-16.5); LYMPHOCYTES % (AUTO) 41.3 % (20.5-51.1); MEAN CORPUSCULAR HEMOGLOBIN 27 pg (27-31); MEAN CORPUSCULAR HGB CONC 33 g/dL (33-37); MEAN CORPUSCULAR VOLUME 84.2 fL (80-94); MONOCYTES # (AUTO) 0.5 K/uL (0.8-1.0); MONOCYTES % (AUTO) 11.6 % (1.7-9.3); NEUTROPHILS # (AUTO) 1.9 K/uL (1.8-7.7); NEUTROPHILS % (AUTO) 44.9 % (42.2-75.2); PLATELET COUNT (AUTO) 237 K/uL (140-450); RED BLOOD CELL COUNT(AUTO) 3.96 MIL/uL (4.20-5.40); RED CELL DISTRIBUTION WIDTH 13.9 % (11.6-13.7); WHITE BLOOD COUNT (AUTO) 4.1 K/uL (4.8-10.8)
[2024-03-07] MEDS: ONDANSETRON 4 MG ODT PO ONE (15:23)
[2024-03-07 15:24] LABS: ALBUMIN 3.1 g/dL (3.4-5.0); ANION GAP 10.4 (8-16); CALCIUM 8.9 mg/dL (8.5-10.1); CARBON DIOXIDE 31.3 mmol/L (21-32); CREATININE 0.8 mg/dL (0.6-1.3); POTASSIUM 3.7 mmol/L (3.5-5.1); TOTAL BILIRUBIN 0.3 mg/dL (0.0-1.0)
[2024-03-07] MEDS: MORPHINE SULFATE 4 MG/ML SYR IM ONE (15:27)
[2024-03-07] MEDS ORDERED: CIPR500T4 PO (15:59)
[2024-03-07] MEDS ORDERED: METR-435 PO (15:59)
[2024-03-07 16:36] VITALS: BP 116/63; PULSE 60; RESP 18; O2SAT 96
== END 2024-03-07 16:36 | disposition home or self-care (01) ==
LOC: MED 13:30
DX: K57.32 Diverticulitis of large intestine without perforation or abscess without bleeding (principal); R31.9 Hematuria, unspecified; I10 Essential (primary) hypertension; J45.909 Unspecified asthma, uncomplicated; K21.9 Gastro-esophageal reflux disease without esophagitis; M19.90 Unspecified osteoarthritis, unspecified site; Z79.1 Long term (current) use of non-steroidal anti-inflammatories (NSAID); Z79.2 Long term (current) use of antibiotics; Z79.899 Other long term (current) drug therapy; Z88.0 Allergy status to penicillin; Z88.8 Allergy status to other drugs, medicaments and biological substances
CPT/HCPCS: 36415; 74176; 80053; 81002; 81025; 83690; 85025; 96372; 99285; J2270; Q0162